=== PATIENT | male | born 1965 | race Two or more races ===

== ENCOUNTER 2019-04-10 13:15 | Emergency (ER) | payer BC ==
[~2019-04-10] VITALS: Ht 188 cm; Wt 84.4 kg
--- NOTE | 2019-04-10 13:45 | NUR ---
53 YEAR OLD MALE SENT BY URGENT CARE FOR RUE REDNESS & SWELLING x 3DAYS AGO. ALERT AND OREITNED X4, BREATHING EVEN AND UNLABORED WITH NO DISTRESS NOTED. NOTED WITH RIGHT ARM SWELLING. AWAITING TO BE SEEN BY
[2019-04-10] MEDS ORDERED: IV NS 0.9% 1,000 ML BAG IV ONE (14:00)
[2019-04-10] MEDS ORDERED: FAMOTIDINE/PF INJ 20 MG/2 ML VIAL IV ONE (14:00)
[2019-04-10] MEDS ORDERED: ONDANSETRON HCL/PF 4 MG/2 ML VIAL IVP ONE (14:00)
[2019-04-10] MEDS ORDERED: predniSONE 20 MG TABLET PO ONE (14:30)
[2019-04-10] MEDS ORDERED: predniSONE 20 MG TABLET ONE (14:33)
[2019-04-10 14:34] LABS: BASOPHILS % (AUTO) 0.4 % (0.0-2.0); HEMATOCRIT 44 % (39-51); HEMOGLOBIN 14.9 g/dL (13.5-17.5); LYMPHOCYTES # (AUTO) 1.4 /CMM (0.8-4.8); MEAN CORPUSCULAR HGB CONC 34 g/dl (31.0-36.0); MEAN CORPUSCULAR VOLUME 89 fL (80-96); MONOCYTES # (AUTO) 0.5 /CMM (0.1-1.30); NEUTROPHILS # (AUTO) 7.1 /CMM (1.8-8.9); NEUTROPHILS % (AUTO) 77.6 % (43.0-81.0); PLATELET COUNT (AUTO) 207 /CMM (150-450); WHITE BLOOD COUNT (AUTO) 9.2 K/uL (4.3-11.0)
--- NOTE | 2019-04-10 14:39 | NUR ---
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
[2019-04-10 14:43] LABS: CALCIUM, SERUM 8.7 mg/dL (8.5-10.1); POTASSIUM 3.9 mmol/L (3.5-5.1)
[2019-04-10 16:18] VITALS: BP 133/77
--- NOTE | 2019-04-10 16:18 | NUR ---
Patient discharged to home in stable condition. Written and verbal after care instructions given. Patient verbalizes understanding of instruction.
[2019-04-10] MEDS ORDERED: APIXABAN 5 MG TABLET PO SCH (17:00)
== END 2019-04-10 16:20 | disposition home or self-care (01) ==
LOC: ER 13:15
DX: I82.621 Acute embolism and thrombosis of deep veins of right upper extremity (principal); Z98.890 Other specified postprocedural states; Z60.2 Problems related to living alone
CPT/HCPCS: 36415; 71045; 80048; 85025; 85730; 93971; 99284; J7512